=== PATIENT | male | born 1990 | race Caucasian/White ===

== ENCOUNTER 2024-02-10 16:37 | Emergency (ER) | payer MEDICAID ==
[~2024-02-10] VITALS: Ht 175.3 cm; Wt 59.0 kg
[2024-02-10 16:48] VITALS: BP 139/67; RESP 16; TEMP 98.2; O2SAT 100
[2024-02-10 16:49] VITALS: PULSE 109
[2024-02-10] MEDS ORDERED: CEPH500T MT (19:03)
[2024-02-10] MEDS ORDERED: SULF1TAB48 MT (19:03)
[2024-02-10] MEDS ORDERED: NAPR-1176 MT (19:04)
== END 2024-02-10 19:25 | disposition home or self-care (01) ==
LOC: ER 16:37
DX: L02.211 Cutaneous abscess of abdominal wall (principal); Z98.890 Other specified postprocedural states; Z90.49 Acquired absence of other specified parts of digestive tract
CPT/HCPCS: 99283